=== PATIENT | male | born 1980 | race African-American/Black ===

== ENCOUNTER 2021-01-16 11:20 | Emergency (ER) | payer MEDICAID, OTHER ==
[~2021-01-16] VITALS: Ht 188 cm; Wt 97.5 kg
[2021-01-16 11:51] VITALS: BP 153/89
[2021-01-16] MEDS ORDERED: IBUPROFEN 800 MG TAB PO ONE (13:00)
== END 2021-01-16 13:15 | disposition home or self-care (01) ==
LOC: ER 11:20
DX: S46.911A Strain of unspecified muscle, fascia and tendon at shoulder and upper arm level, right arm, initial encounter (principal); X50.1XXA Overexertion from prolonged static or awkward postures, initial encounter; Y93.89 Activity, other specified; Y92.89 Other specified places as the place of occurrence of the external cause; Y99.8 Other external cause status
CPT/HCPCS: 73030